=== PATIENT | female | born 1945 | race Caucasian/White ===

== ENCOUNTER 2019-08-06 15:35 | Outpatient (CLI) | payer MEDICARE, MEDICAID, SELFPAY ==
--- NOTE | 2019-08-06 15:52 | XR_ITS ---
WS: [id number] PROCEDURE: XR chest 2V* [id number] CLINICAL INFORMATION: CHRONIC OBSTRUCTIVE PULMONARY DISEASE COMPARISON: FINDINGS: Heart: Normal cardiac silhouette. Lungs: Chronic emphysematous changes. No acute pulmonary infiltrates. Slight bibasilar atelectasis. T ortuous thoracic aorta. Bones: Moderate thoracic kyphosis. XR/XR chest 2V* [id number] IMPRESSION: 1. Hyperinflation with chronic emphysematous changes. Slight bibasilar atelect asis. 2. No acute pulmonary infiltrates. 3. Moderate thoracic kyphosis.
== END 2019-08-06 15:36 | disposition home or self-care (01) ==
PROVIDERS: PCP Nurse Practitioner Family; Visit Provider Nurse Practitioner Family
DX: J44.9 Chronic obstructive pulmonary disease, unspecified (principal); M40.294 Other kyphosis, thoracic region; J98.11 Atelectasis
CPT/HCPCS: 71046

== ENCOUNTER 2019-08-27 13:27 | Outpatient (CLI) | payer MEDICARE, MEDICAID, SELFPAY ==
--- NOTE | 2019-08-27 13:42 | MM_ITS ---
WS: [id number] BILATERAL SCREENING DIGITAL MAMMOGRAM WITH CAD HISTORY: SCREENING COMPARISON: 05/30/2018 and 03/08/2017 Bilateral CC and MLO views submitted. Computer aided detection analyzed. Breast composition: There are scattered areas of fibroglandular density. No suspicious masses, microc alcifications or architectural distortion. Scattered benign calcifications. MM/[place] [id number] IMPRESSION: BI-RADS: 2-Benign FOLLOW UP: 1 Year Follow-up
== END 2019-08-27 13:28 | disposition home or self-care (01) ==
LOC: RADSHAW 13:31
PROVIDERS: PCP Nurse Practitioner Family; Visit Provider Nurse Practitioner Family
DX: Z12.31 Encounter for screening mammogram for malignant neoplasm of breast (principal)
CPT/HCPCS: 77067

== ENCOUNTER 2019-12-18 12:52 | Outpatient (CLI) | payer MEDICARE, MEDICAID, SELFPAY ==
--- NOTE | 2019-12-18 13:04 | CT_ITS ---
WS: [id number] CT LUNG CANCER SCREENING DLP: 54.27 mGy.cm DIvol: 1.52 mGy CLINICAL INFORMATION SCREENING VISIT: Baseline COMPARISON: 07/23/2018 FINDINGS Diagnostic quality: Satisfactory Comments: None. Lung Nodules: None. Lungs: Hyperinflated lungs with emphysema. No pneumonia. No endobronchial lesions. Heart: Size heart. Heavy calcification along the coronary arteries. Other findings: Atherosclerosis of the aorta, mild. Pulmonary artery size is normal. Small hiatal her emelia. Superficial cyst LEFT lobe of the liver measures 14 mm. No adrenal mass. Increase in thoracic kyphosis with moderate to severe spondylosis in the thoracic spine. CT/CT lung screening [id number] IMPRESSION: LUNG-RADS: 1S-Negative with Significant Findings FOLLOW UP: 12 Month: Continue annual screening with LDCT 1. Moderate coronary artery atherosclerosis.
[2019-12-18 13:53] VITALS: O2SAT 93
--- NOTE | 2019-12-18 15:08 | PFTS_ITS ---
Date of Study:12/18/19 Date of Dictation: MECHANICS: Forced vital capacity (FVC) is normal. Forced expiratory volume in one second (FEV1) is reduced. FEV1/FVC is reduced. FLOW VOLUME LOOP: Reduced flow at all lung volumes with significant scooping. LUNG VOLUMES: Total lung capacity (TLC) is elevated. Residual volume (RV) is elevated. DIFFUSING CAPACITY FOR CARBON MONOXIDE: Moderately reduced. INTERPRETATION: The pulmonary function tests are consistent with severe obstruction. There is significant postbronchodilator response. Lung volumes are consistent with hyperinflation and air trapping. Gas exchange (DLCO) is moderately reduced. MTDD
== END 2019-12-18 12:53 | disposition home or self-care (01) ==
PROVIDERS: PCP Nurse Practitioner Family; Visit Provider Internal Medicine Critical Care Medicine
DX: J44.9 Chronic obstructive pulmonary disease, unspecified (principal); Z12.2 Encounter for screening for malignant neoplasm of respiratory organs; F17.210 Nicotine dependence, cigarettes, uncomplicated; I25.10 Atherosclerotic heart disease of native coronary artery without angina pectoris
CPT/HCPCS: 94060; 94726; 94729; G0297; J7611

== ENCOUNTER 2020-10-12 14:52 | Outpatient (CLI) | payer MEDICARE, MEDICAID, SELFPAY ==
--- NOTE | 2020-10-12 15:08 | XR_ITS ---
WS: [id number] DEXA (DUAL ENERGY X-RAY ABSORPTIOMETRY) Bone mineral density was performed using a [employer] machine. HISTORY: AGE RELATED OSTEOPOROSIS WITHOUT CURRENT PATHOLOGICAL FRACTURE COMPARISON: 05/30/2018 Lumbar spine BMD (L1-L4): 0.929 g/cm2 T score: -2.1 Z score: -0.4 Total hip BMD: Left: 0.709 g/cm2. T score: -2.4 Z score: -0.8 Right: 0.704 g/cm2. T score: -2.4 Z score: -0.8 10 year probability of a major osteoporotic fracture is 47%. Compared to the prior study from 05/30/2018. Lumbar spine bone mineral density has increased by 4.4%. Bilateral hips bone mineral density has decreased by 0.6%. XR/XR DEXA axial skeleton* [id number] IMPRESSION: OSTEOPENIA based upon the WHO classification for females. Since the prior study there has been a significant increase in bone mineral density within the lumba r spine.
== END 2020-10-12 14:53 | disposition home or self-care (01) ==
LOC: RADWPI 15:00
PROVIDERS: PCP Nurse Practitioner Family; Visit Provider Nurse Practitioner Family
DX: M81.0 Age-related osteoporosis without current pathological fracture (principal); M85.89 Other specified disorders of bone density and structure, multiple sites
CPT/HCPCS: 77080

== ENCOUNTER → 2020-10-16 16:27 | Outpatient (BNVA) | payer MEDICARE, MEDICAID, SELFPAY | PROVIDERS: PCP Nurse Practitioner Family; Visit Provider Surgery | DX: Z20.828 Contact with and (suspected) exposure to other viral communicable diseases (principal) | CPT/HCPCS: 87635 ==

== ENCOUNTER 2020-10-20 08:35 | Day surgery (SDC) | payer MEDICARE, MEDICAID, SELFPAY ==
[2020-10-16 14:18] VITALS: BMI 25.4
--- NOTE | 2020-10-20 09:12 | P.ANESASSM_ITS ---
Pre-Anesthetic Assessment Pre-Anesthetic Assessment: Height/Weight: Height 1.6 m Weight 65.317 kg Proposed Procedure: Operation Date: 10/20/20 10:00 Proposed Procedures p EGD/colon 65482 02214 R13.10 Z12.11(Not Applicable) - Aniket Brody MD s Colonoscopy(Not Applicable) - Aniket Brody MD Was Beta Luis taken within 24 hours: N/A Was Clonidine taken within 24 hours: N/A Social: Social History: Tobacco and No alcohol Exam: Pre-Anes Outpt Exam: alert, oriented x 3, clear to auscultation bilaterally and regular rate & rhythm Airway: Submandibular: WNL Cervical ROM: WNL MP: 2 Dentition: Chipped and Loose Pulmonary: Pulmonary: COPD CV/HEM: CV/HEM: None reported : : None reported Hepatic: Hepatic: None reported GI: GI: GERD Metabolic: Metabolic: Hyperlipidemia and Thyroid Musc/skel: Musc/skel: OA/DJD Neuropsych: Neuropsych: None reported Anesthetic Plan: ASA status: 3 Anesthesia: MAC PFSH Anesthesia PFSH: Medical History (Updated 10/02/20 @ 14:30 by Aniket Brody MD) ADD (attention deficit disorder) Anxiety COPD (chronic obstructive pulmonary disease) Depression GERD (gastroesophageal reflux disease) Hepatitis C Hypertension Hypothyroidism Osteoporosis Vitamin D deficiency Surgical History History of colonoscopy (2009) History of esophagogastroduodenoscopy (EGD) (~01/23/18) History of hysterectomy History of tubal ligation Family History Father Alcoholism Mother Cancer, Onset Age: 63 Lung Grandfather Congestive heart failure Paternal Grandmother Alcoholism Maternal Myocardial infarction Maternal Family/Other Parkinson disease Aunt Family/Other Hepatitis C Maternal Aunt Sister Drug abuse Brother Drug abuse Social History Smoking and tobacco status: current every day smoker cigarettes Packs smoked per day: 0.5 Years cigarettes smoked: 40 Quit status (tobacco): has tried quititng Second hand smoke exposure: No Smoking risk assessment/counseling performed?: Yes Alcohol intake: never Desire information about substance/drug rehabilitation?: No Adopted: No Lives independently: Yes Household members: family Housing: House Marital status: Highest education level completed: High School Graduate service: No Current occupational status: retired Pets and animals: No History of recent travel: No Sexually active: No Current gender identity: Female Summer/Yazidi: Protestant Special summer needs: No Agree to transfusion: No Financial difficulty paying for basics: Decline to Answer Data Anesthesia Cardiac Studies: No Data to Display
[2020-10-20 10:03] VITALS: BP 164/85; PULSE 72; RESP 16; TEMP 37; O2SAT 92
[2020-10-20] MEDS: sodium chloride 0.9% 1,000 ML 30 ML IV (10:05)
--- NOTE | 2020-10-20 10:26 | W.PM.OPSUD ---
Surgery/Procedure H&P Update DATE OF PROCEDURE: October 20, 2020 DATE H&P PERFORMED: 10/02/20 H&P UPDATE INFORMATION: I have reviewed H&P completed within last 30 days, I have examined patient prior to procedure and No changes to prior documentation PREOP DIAGNOSIS: panendoscopy PLANNED PROCEDURE: Operation Date: 10/20/20 10:00 Proposed Procedures p EGD/colon 10828 39797 R13.10 Z12.11(Not Applicable) - Aniket Brody MD s Colonoscopy(Not Applicable) - Aniket Brody MD
[2020-10-20 11:08] VITALS: BP 200/135; PULSE 92; RESP 18; TEMP 36.6; O2SAT 92
[2020-10-20 11:15] VITALS: PULSE 86; RESP 18; O2SAT 96
[2020-10-20 11:21] VITALS: PULSE 88
[2020-10-20 11:39] VITALS: BP 175/97; PULSE 72; RESP 20; TEMP 36.6; O2SAT 92
[2020-10-20 12:37] VITALS: BP 144/75; PULSE 64; RESP 18; TEMP 36.6; O2SAT 93
--- NOTE | 2020-10-20 13:51 | ANE.PACU2 ---
Inpatient post-anesthesia follow up: Airway intact: Yes Vital signs: Temperature 97.9 F Pulse Rate 64 Respiratory Rate 18 Blood Pressure 144/75 Pulse Oximetry 93 Oxygen Delivery Me thod Room Air Oxygen Flow Rate 2 Fraction of Inspir ed Oxygen Hydration adequate: Yes Nausea and vomiting: No Pain level: 2 Mental status: Baseline
== END 2020-10-20 13:00 | disposition home or self-care (01) ==
PROVIDERS: PCP Nurse Practitioner Family; Visit Provider Surgery
PROC: 0DJD8ZZ Inspection of Lower Intestinal Tract, Via Natural or Artificial Opening Endoscopic (ICD-10-PCS; CPT 45378; 2020-10-20 10:00)
PROC: 0DJ08ZZ Inspection of Upper Intestinal Tract, Via Natural or Artificial Opening Endoscopic (ICD-10-PCS; CPT 43235; 2020-10-20 10:00)
DX: Z12.11 Encounter for screening for malignant neoplasm of colon (principal); R13.10 Dysphagia, unspecified; Z79.82 Long term (current) use of aspirin; J44.9 Chronic obstructive pulmonary disease, unspecified; B19.20 Unspecified viral hepatitis C without hepatic coma; I10 Essential (primary) hypertension; E03.9 Hypothyroidism, unspecified; M81.0 Age-related osteoporosis without current pathological fracture; F17.210 Nicotine dependence, cigarettes, uncomplicated; K29.70 Gastritis, unspecified, without bleeding; K57.30 Diverticulosis of large intestine without perforation or abscess without bleeding; K64.8 Other hemorrhoids; K21.9 Gastro-esophageal reflux disease without esophagitis; E78.5 Hyperlipidemia, unspecified; M19.90 Unspecified osteoarthritis, unspecified site
CPT/HCPCS: 43235; 45378; 94640; 96360; 96361; J2704; J3490; J7030; J7611

== ENCOUNTER 2021-01-21 14:55 | Outpatient (CLI) | payer MEDICARE, MEDICAID, SELFPAY ==
--- NOTE | 2021-01-21 15:13 | MM_ITS ---
WS: [id number] BILATERAL DIGITAL SCREENING MAMMOGRAPHY WITH CAD CLINICAL INFORMATION: SCREENING HISTORY: Screening mammogram. No current complaints. COMPARISON: August 27, 2019 TECHNIQUE: Bilateral CC and MLO views. FINDINGS: Scattered fibroglandular densities bilaterally. No suspicious focal mass, asymmetry, calcifications, or architectural distortion. No evidence of malignancy. A few tiny punctate calcifications. MM/[place] [id number] IMPRESSION: BI-RADS: 2-Benign FOLLOW UP: 1 Year Follow-up Recommend return to annual screening mammography.
== END 2021-01-21 14:56 | disposition home or self-care (01) ==
LOC: RADSHAW 15:00
PROVIDERS: PCP Nurse Practitioner Family; Visit Provider Nurse Practitioner Family
DX: Z12.31 Encounter for screening mammogram for malignant neoplasm of breast (principal)
CPT/HCPCS: 77067

== ENCOUNTER 2021-02-01 14:04 | Outpatient (CLI) | payer MEDICARE, MEDICAID, SELFPAY ==
--- NOTE | 2021-02-01 14:12 | CT_ITS ---
WS: [id number] LDCT LUNG CANCER SCREENING TECHNIQUE: Noncontrast CT of the chest with coronal and sagittal reformatted images. CLINICAL INFORMATION: HX OF TOBACCO USE COMPARISON: CT lung screen December 18, 2019 DLP: 51.42 mGy.cm DIvol: 1.[address] scans at [facility] use at least one of these dose optimization techniques: automat ed exposure control; mA and/or kV adjustment per patient size (includes targeted exams where dose is matched to clinical indication); or iterative reconstruction. FINDINGS: Moderate chronic emphysematous changes. No suspicious pulmonary parenchymal opacities. No focal pneum onia or pleural fluid. Aortic calcification. No mediastinal or hilar lymphadenopathy. Dense coronary calcification. Small es ophageal hiatal hernia. 14 mm left hepatic cyst is stable. Moderate thoracic kyphosis with degenerati ve disc disease in the mid and lower thoracic spine with endplate degenerative changes and sclerosis. This is similar to the prior examination. CT/CT lung screening [id number] IMPRESSION: Dense coronary calcification LUNG-RADS: 1S-Negative with Significant Findings FOLLOW UP: 12 Month: Continue annual screening with LDCT
== END 2021-02-01 14:05 | disposition home or self-care (01) ==
PROVIDERS: PCP Nurse Practitioner Family; Visit Provider Nurse Practitioner Family
DX: Z12.2 Encounter for screening for malignant neoplasm of respiratory organs (principal); F17.210 Nicotine dependence, cigarettes, uncomplicated; I70.0 Atherosclerosis of aorta
CPT/HCPCS: 71271

== ENCOUNTER → 2021-02-17 15:04 | Outpatient (BNVA) | payer MEDICARE, MEDICAID, SELFPAY | PROVIDERS: PCP Nurse Practitioner Family; Visit Provider Registered Nurse Neonatal Intensive Care | DX: S69.91XA Unspecified injury of right wrist, hand and finger(s), initial encounter (principal); X58.XXXA Exposure to other specified factors, initial encounter; M19.041 Primary osteoarthritis, right hand | CPT/HCPCS: 73130 ==

== ENCOUNTER → 2021-03-01 15:20 | Outpatient (BNVA) | payer MEDICARE, MEDICAID, SELFPAY | PROVIDERS: PCP Nurse Practitioner Family; Visit Provider Nurse Practitioner Family | DX: Z20.822 Contact with and (suspected) exposure to COVID-19 (principal); J06.9 Acute upper respiratory infection, unspecified | CPT/HCPCS: 87635 ==

== ENCOUNTER → 2021-03-24 11:12 | Outpatient (BNVA) | payer MEDICARE, MEDICAID, SELFPAY | PROVIDERS: PCP Nurse Practitioner Family; Referring Provider Nurse Practitioner Family; Visit Provider Specialist | DX: M19.041 Primary osteoarthritis, right hand (principal); M79.641 Pain in right hand | CPT/HCPCS: 73130 ==

== ENCOUNTER → 2021-12-08 13:51 | Outpatient (BNVA) | payer MEDICARE, MEDICAID, SELFPAY | PROVIDERS: PCP Nurse Practitioner Family; Visit Provider Internal Medicine Critical Care Medicine | DX: J44.9 Chronic obstructive pulmonary disease, unspecified (principal); F17.210 Nicotine dependence, cigarettes, uncomplicated; G47.33 Obstructive sleep apnea (adult) (pediatric); K21.9 Gastro-esophageal reflux disease without esophagitis; I10 Essential (primary) hypertension | CPT/HCPCS: 71046; 99214 ==

== ENCOUNTER → 2021-12-23 10:46 | Outpatient (BNVA) | payer MEDICARE, MEDICAID, SELFPAY | PROVIDERS: PCP Nurse Practitioner Family; Visit Provider Anesthesiology Pain Medicine | DX: M43.16 Spondylolisthesis, lumbar region (principal); M79.604 Pain in right leg; M79.605 Pain in left leg; F17.210 Nicotine dependence, cigarettes, uncomplicated | CPT/HCPCS: 99204 ==

== ENCOUNTER → 2022-01-05 13:27 | Outpatient (BNVA) | payer MEDICARE, MEDICAID, SELFPAY | PROVIDERS: PCP Nurse Practitioner Family; Visit Provider Internal Medicine Critical Care Medicine | DX: J44.9 Chronic obstructive pulmonary disease, unspecified (principal); F17.210 Nicotine dependence, cigarettes, uncomplicated; G47.33 Obstructive sleep apnea (adult) (pediatric); K21.9 Gastro-esophageal reflux disease without esophagitis; I10 Essential (primary) hypertension; E03.9 Hypothyroidism, unspecified | CPT/HCPCS: 99214 ==

== ENCOUNTER 2022-02-07 13:19 | Outpatient (CLI) | payer MEDICARE, MEDICAID, SELFPAY ==
--- NOTE | 2022-02-07 13:00 | MR_ITS ---
WS: [id number] MRI LUMBAR SPINE NONCONTRAST HISTORY: M48.062 - Spinal stenosis, lumbar region with neurogenic claudication. COMPARISON: None available. TECHNIQUE: Sagittal and axial multisequence imaging is submitted. Thoracolumbar scoliosis. Increase in thoracic kyphosis. Disc space narrowing and disc bulging at T10- 11 and T11-12. Bilateral foraminal stenosis at T10-11 and T11-12, greatest on the RIGHT is at least m oderate. Mild increase in lumbar lordosis. L5 anterolisthesis by 5 mm. Disc spaces are mildly desiccated throughout the lumbar spine. No fracture or marrow edema. Conus terminates normally at L1-2 disc level. L1-L2: Diffuse moderate disc bulging and facet arthritis. No stenosis. L2-L3: Mild disc bulging and facet arthritis. No stenosis. L3-L4: Diffuse annular disc bulging. Mild ligamentum flavum and facet arthritis. There is very mild e ncroachment into the subarticular recesses. Mild central and bilateral subarticular recess stenosis. L4-L5: Mild diffuse annular disc bulging with moderate ligamentum flavum hypertrophy and facet arthri tis. Mild central and bilateral subarticular recess stenosis. Asymmetric disc bulging contacts the tr aversing RIGHT L5 nerve root. L5-S1: Anterolisthesis of L5 with mild unroofing of the disc. Mild encroachment but no displacement o f the S1 nerve roots. Facet and ligamentum flavum hypertrophy. Mild foraminal stenosis. MR/MR lumbar spine wo con* [id number] IMPRESSION: 1. Grade 1 anterolisthesis of L5. 2. Mild central stenosis at L5-S1 with disc contacting but not displacing the S1 nerve roots. 3. Mild central and bilateral subarticular recess stenosis at L3-4. 4. Mild central and bilateral subarticular recess stenosis L4-5 with slightly greater asymmetric disc contact on the RIGHT L5 nerve root. 5. Seen on the survey image is bilateral foraminal stenosis at T10-11 and T11- 12, greatest on the RIGHT with disc and osteophyte disease.
== END 2022-02-07 13:20 | disposition home or self-care (01) ==
LOC: RAD 13:22
PROVIDERS: PCP Nurse Practitioner Family; Visit Provider Anesthesiology Pain Medicine
DX: M48.062 Spinal stenosis, lumbar region with neurogenic claudication (principal); M48.07 Spinal stenosis, lumbosacral region; M48.04 Spinal stenosis, thoracic region; M48.061 Spinal stenosis, lumbar region without neurogenic claudication
CPT/HCPCS: 72148

== ENCOUNTER 2022-02-17 10:02 | Outpatient (CLI) | payer MEDICARE, MEDICAID, SELFPAY ==
--- NOTE | 2022-02-17 10:16 | MM_ITS ---
WS: [id number] BILATERAL SCREENING DIGITAL TOMOSYNTHESIS MAMMOGRAM WITH CAD HISTORY: SCREENING COMPARISON: 01/21/2021 and 08/27/2019 Bilateral CC and MLO views with tomosynthesis and synthetic mammography submitted. Computer aided det ection analyzed. Breast composition: There are scattered areas of fibroglandular density. No suspicious masses, microc alcifications or architectural distortion. There are a few scattered benign calcifications within eac h breast. MM/[place] [id number] IMPRESSION: BI-RADS: 2-Benign FOLLOW UP: 1 Year Follow-up
== END 2022-02-17 10:03 | disposition home or self-care (01) ==
LOC: RAD 10:03
PROVIDERS: PCP Nurse Practitioner Family; Visit Provider Family Medicine Adult Medicine
DX: Z12.31 Encounter for screening mammogram for malignant neoplasm of breast (principal)
CPT/HCPCS: 77063; 77067

== ENCOUNTER → 2022-02-21 10:44 | Outpatient (BNVA) | payer MEDICARE, MEDICAID, SELFPAY | PROVIDERS: PCP Nurse Practitioner Family; Visit Provider Anesthesiology Pain Medicine | DX: M47.816 Spondylosis without myelopathy or radiculopathy, lumbar region (principal); M43.16 Spondylolisthesis, lumbar region; M51.16 Intervertebral disc disorders with radiculopathy, lumbar region; M51.9 Unspecified thoracic, thoracolumbar and lumbosacral intervertebral disc disorder; M79.604 Pain in right leg; M79.605 Pain in left leg; F17.210 Nicotine dependence, cigarettes, uncomplicated | CPT/HCPCS: 99214 ==

== ENCOUNTER → 2022-03-07 08:43 | Outpatient (BNVA) | payer MEDICARE, MEDICAID, SELFPAY | PROVIDERS: PCP Nurse Practitioner Family; Visit Provider Anesthesiology Pain Medicine | DX: M47.816 Spondylosis without myelopathy or radiculopathy, lumbar region (principal); M43.16 Spondylolisthesis, lumbar region; M51.16 Intervertebral disc disorders with radiculopathy, lumbar region; M51.9 Unspecified thoracic, thoracolumbar and lumbosacral intervertebral disc disorder; M79.604 Pain in right leg; M79.605 Pain in left leg; F17.210 Nicotine dependence, cigarettes, uncomplicated | CPT/HCPCS: 72110; 99214 ==

== ENCOUNTER 2022-03-15 11:59 | Outpatient (CLI) | payer MEDICARE, MEDICAID, SELFPAY ==
--- NOTE | 2022-03-15 12:03 | CT_ITS ---
WS: [id number] LDCT LUNG CANCER SCREENING TECHNIQUE: Noncontrast CT of the chest with coronal and sagittal reformatted images. CLINICAL INFORMATION: Lung cancer screening COMPARISON: February 01, 2021 DLP: 78.09 mGy.cm DIvol: Mean CTDIvol: 1.60 (mGy) All CT scans at [facility] use at least one of these dose optimization techniques: automat ed exposure control; mA and/or kV adjustment per patient size (includes targeted exams where dose is matched to clinical indication); or iterative reconstruction. FINDINGS: Moderate chronic emphysematous changes. No suspicious pulmonary parenchymal opacities. No focal pneum onia or pleural fluid. Aortic calcification. No mediastinal or hilar lymphadenopathy. Dense coronary calcification. Small esophageal hiatal hernia. 17 mm left hepatic cyst is stable. Moderate thoracic kyphosis with de generative disc disease in the mid and lower thoracic spine with endplate degenerative changes and sc lerosis unchanged compared to previous. LEFT thyroid nodule measuring 18 mm. This can be further eval uated with ultrasound. This appears progressed since the [address] where nodule measured approxim ately [address]/CT lung screening [id number] IMPRESSION: 1. Dense coronary calcification. 2. LEFT thyroid nodule measuring 18 mm. This can be further evaluated with ult rasound. LUNG-RADS: 1S-Negative with Significant Findings FOLLOW UP: 12 Month: Continue annual screening with LDCT
== END 2022-03-15 12:00 | disposition home or self-care (01) ==
LOC: RAD 11:59
PROVIDERS: PCP Nurse Practitioner Family; Visit Provider Internal Medicine Critical Care Medicine
DX: Z12.2 Encounter for screening for malignant neoplasm of respiratory organs (principal); F17.200 Nicotine dependence, unspecified, uncomplicated
CPT/HCPCS: 71271

== ENCOUNTER → 2022-03-16 13:24 | Outpatient (BNVA) | payer MEDICARE, MEDICAID, SELFPAY | PROVIDERS: PCP Nurse Practitioner Family; Visit Provider Anesthesiology Pain Medicine | DX: F17.210 Nicotine dependence, cigarettes, uncomplicated (principal); M54.16 Radiculopathy, lumbar region | CPT/HCPCS: 62323; J1040; J3490 ==

== ENCOUNTER → 2022-03-24 10:51 | Outpatient (BNVA) | payer MEDICARE, MEDICAID, SELFPAY | PROVIDERS: Referring Provider Anesthesiology Pain Medicine; Visit Provider Orthopaedic Surgery | DX: M43.17 Spondylolisthesis, lumbosacral region (principal) | CPT/HCPCS: 99204 ==

== ENCOUNTER → 2022-03-25 13:30 | Outpatient (BNVA) | payer MEDICARE, MEDICAID, SELFPAY | PROVIDERS: Visit Provider Family Medicine Adult Medicine | DX: I10 Essential (primary) hypertension (principal); G47.33 Obstructive sleep apnea (adult) (pediatric); E03.9 Hypothyroidism, unspecified; E04.1 Nontoxic single thyroid nodule; J44.9 Chronic obstructive pulmonary disease, unspecified; M51.16 Intervertebral disc disorders with radiculopathy, lumbar region; K21.9 Gastro-esophageal reflux disease without esophagitis | CPT/HCPCS: 80053; 83036; 84443; 85025 ==

== ENCOUNTER → 2022-03-31 10:37 | Outpatient (BNVA) | payer MEDICARE, MEDICAID, SELFPAY | PROVIDERS: Visit Provider Anesthesiology Pain Medicine | DX: M47.816 Spondylosis without myelopathy or radiculopathy, lumbar region (principal); M43.10 Spondylolisthesis, site unspecified; M51.16 Intervertebral disc disorders with radiculopathy, lumbar region; M51.9 Unspecified thoracic, thoracolumbar and lumbosacral intervertebral disc disorder; M79.604 Pain in right leg; M79.605 Pain in left leg; F17.210 Nicotine dependence, cigarettes, uncomplicated | CPT/HCPCS: 99214 ==

== ENCOUNTER → 2022-04-06 10:52 | Outpatient (BNVA) | payer MEDICARE, MEDICAID, SELFPAY | PROVIDERS: PCP Family Medicine Adult Medicine; Visit Provider Internal Medicine Critical Care Medicine | DX: J44.1 Chronic obstructive pulmonary disease with (acute) exacerbation (principal); G47.33 Obstructive sleep apnea (adult) (pediatric); E04.1 Nontoxic single thyroid nodule; F17.210 Nicotine dependence, cigarettes, uncomplicated | CPT/HCPCS: 99214 ==

== ENCOUNTER → 2022-04-25 12:50 | Outpatient (BNVA) | payer MEDICARE, MEDICAID, SELFPAY | PROVIDERS: PCP Family Medicine Adult Medicine; Visit Provider Anesthesiology Pain Medicine | DX: M47.816 Spondylosis without myelopathy or radiculopathy, lumbar region (principal); F17.210 Nicotine dependence, cigarettes, uncomplicated | CPT/HCPCS: 64493; 64494; 64495; J3490 ==

== ENCOUNTER 2022-05-03 08:05 | Outpatient (CLI) | payer MEDICARE, MEDICAID, SELFPAY ==
--- NOTE | 2022-05-03 08:00 | US_ITS ---
WS: [id number] THYROID ULTRASOUND HISTORY: 18 mm nodule COMPARISON: CT head 03/15/2022 Right lobe: 1.1 cm x 1.3 cm x 2.9 cm (w x ap x l). Volume: 2.0 cm3. Normal size and echotexture. No significant are dominant nodules are present. Left lobe: 1.8 cm x 1.4 cm x 3.3 cm (w x ap x l). Volume: 4.3 cm3. Normal size gland. Solid nodule nearly isoechoic to the adjacent thyroid gland. There are a few small cystic areas within this predominantly solid nodule. Nodule in the mid gland measures 1.8 x 1.5 x 1. 8 cm. There is mild peripheral increased vascularity. No echogenic foci. Isthmus: 0.4 cm. US/US thyroid [id number] IMPRESSION: 1. TI-RADS 3: LEFT thyroid nodule recommend follow-up ultrasound in one, 3 an d 5 years. 2. Negative RIGHT thyroid.
== END 2022-05-03 08:06 | disposition home or self-care (01) ==
PROVIDERS: PCP Family Medicine Adult Medicine; Visit Provider Family Medicine Adult Medicine
DX: E04.1 Nontoxic single thyroid nodule (principal); E03.9 Hypothyroidism, unspecified
CPT/HCPCS: 76536

== ENCOUNTER → 2022-05-06 16:45 | Outpatient (BNVA) | payer MEDICARE, MEDICAID, SELFPAY | PROVIDERS: PCP Family Medicine Adult Medicine; Visit Provider Registered Nurse Neonatal Intensive Care | DX: N39.0 Urinary tract infection, site not specified (principal) | CPT/HCPCS: 81000 ==

== ENCOUNTER → 2022-08-26 10:27 | Outpatient (BNVA) | payer MEDICARE, MEDICAID, SELFPAY | PROVIDERS: PCP Family Medicine Adult Medicine; Visit Provider Internal Medicine Pulmonary Disease | DX: J44.9 Chronic obstructive pulmonary disease, unspecified (principal); R06.02 Shortness of breath; G47.33 Obstructive sleep apnea (adult) (pediatric); F17.210 Nicotine dependence, cigarettes, uncomplicated; I10 Essential (primary) hypertension; E11.9 Type 2 diabetes mellitus without complications; E03.9 Hypothyroidism, unspecified | CPT/HCPCS: 99214 ==

== ENCOUNTER → 2022-09-06 13:34 | Outpatient (BNVA) | payer MEDICARE, MEDICAID, SELFPAY | PROVIDERS: PCP Family Medicine Adult Medicine; Visit Provider Family Medicine Adult Medicine | DX: E11.9 Type 2 diabetes mellitus without complications (principal); J44.9 Chronic obstructive pulmonary disease, unspecified | CPT/HCPCS: 83036 ==

== ENCOUNTER 2022-10-17 08:46 | Outpatient (CLI) | payer MEDICARE, MEDICAID, SELFPAY ==
[2022-10-17 08:53] VITALS: BMI 25.4
--- NOTE | 2022-10-17 08:56 | ECG_ITS ---
[facility] Test Date: 2022-10-17 Pat Name: Latonya Cano Department: Room: Gender: Female Hall Porter: Armida Carrington : 1945 Requested By: Nestor Ching Order Number: [id number] Tameka MD: Janell Fraire M.D. Interpretive Statements NAME OF STUDY: LEXISCAN SESTAMIBI STRESS TEST INDICATION: Shortness of Breath, PROCEDURE: At the baseline, the EKG revealed normal sinus rhythm with a normal ST Ts. The baseline heart was 75 bpm with a blood pressue of 122/82 mm of Hg Lexiscan was infused over a period of 20 seconds. A total of 0.4 milligrams of Lexiscan was infused. The stress phase was continued for a total of 5 minutes. Heart rate at the end of the stress phase was 104 bpm with a blood pressure 147/89 mm of Hg. The EKG at the peak infusion revealed no significant changes. Sestamibi was injected 20 seconds after the Lexiscan infusion. Heart rate at the end of the recovery phase was 103 bpm with a blood pressure of 128/90 mm of Hg. CONCLUSION: 1. No significant EKG changes with the LexiScan infusion 2. No LexiScan induced chest pain or cardiac arrhythmia 3. Normal blood pressure and heart rate response 4. Sestamibi/sestamibi perfusion scan pending; see separate report. Electronically Signed On 10-23-2022 16:42:39 CDT by Janell Fraire M.D. [email or web address]
--- NOTE | 2022-10-17 08:56 | NMCV_ITS ---
NM anita perf SPECT r/s* [id number] Latonya Cano Age: 76 Gender: F : 1945 Exam Date: 10/17/2022 10:35 Ordering Phys: Nestor Hernandez MD Technologist: DOM Goldstein Exam Location: [facility] Indications: SHORTNESS OF BREATH STRESS TEST Please see separate stress test report in [facility] for full findings IMAGE PROTOCOL Rest/Stress 1 Lexiscan Day Radiopharmaceutical Dose (mCi) Administration Site Administered by Rest: Tc-99m 10.8 IV DOM Cleaning Sestamibi Stress:Tc-99m 32.6 IV DOM Cleaning Sestamibi Rest: 17-Oct-2022 60 Discovery 630 Stress: 17-Oct-2022 30 Discovery 630 0.4mg Lexiscan. Images obtained in supine and prone position. SPECT RESULTS Technical Quality: Excellent Raw Data Analysis: Breast attenuation Image Corrections: No attenuation or motion correction applied Summed Stress Score: 0 Summed Rest Score: 0 Summed Difference Score: 0 PERFUSION FINDINGS Uniform myocardial tracer uptake with no significant perfusion abnormalities FUNCTIONAL RESULTS (calculated via Gated SPECT) Stress Image LV EF (%): 79 Stress EDV (mL):56 TID: 0.79 Stress ESV (mL):12 FUNCTIONAL FINDINGS: Segmental wall motion analysis revealing no gross wall motion abnormalities IMPRESSIONS 1. Uniform myocardial tracer uptake with no significant perfusion abnormalities 2. Normal LV ejection fraction of 79%. 3. LV wall motion analysis revealing no gross wall motion abnormalities. 4. Normal LV volume Low probability for coronary ischemia, based on the above findings Dr Janell Fraire MD [facility] (Electronically Signed) Final Date: 17 October 2022 17:54 S
[2022-10-17] MEDS: regadenoson 0.4 Mg/5 ml Syringe IVP (11:00)
[2022-10-17 11:30] VITALS: BP 128/90; PULSE 105
== END 2022-10-17 08:47 | disposition home or self-care (01) ==
LOC: CDL 08:48
PROVIDERS: PCP Family Medicine Adult Medicine; Visit Provider Internal Medicine Pulmonary Disease
DX: R06.02 Shortness of breath (principal)
CPT/HCPCS: 78452; 86787; 93017; 96374; A9500; J2785

== ENCOUNTER 2022-11-11 13:56 | Outpatient (CLI) | payer MEDICARE, MEDICAID, SELFPAY ==
--- NOTE | 2022-11-11 14:18 | XR_ITS ---
WS: [id number] Chest with right rib detail, 4 views, 11/11/2022 Clinical Data: rib chest pain Comparison: Two-view chest, 12/08/2021 Findings: The lungs show no nodules, masses, or effusions. The heart is normal. No pneumonia or pneumothorax is seen. The aortic arch and descending thoracic aorta show tortuosity. The diaphragms are flattened. The ribs are intact. No rib fractures seen. No subcutaneous emphysema is present. XR/XR ribs RT mn 3V w CXR1V [id number] Impression: 1. Hyperinflation and atherosclerosis. 2. Negative right rib detail.
[2022-11-11 14:33] LABS: Basophils # 0.1 10^3/uL (0.0-0.1); Basophils % 0.8 %; Eosinophils # 0.4 10^3/uL (0.0-0.8); Eosinophils % 3.3 %; Hematocrit 45.6 % (37.0-47.0); Hemoglobin 15.2 g/dL (11.5-15.3); Lymphocytes # 3.4 10^3/uL (0.8-4.8); Lymphocytes % 26.4 %; Mean Corpuscular HGB Conc 33.3 g/dL (30.0-36.0); Mean Corpuscular Hemoglobin 31.3 pg (28.0-34.0); Mean Corpuscular Volume 93.8 fl (81-99); Mean Platelet Volume 10.2 fL (7.4-10.4); Monocytes # 1.3 10^3/uL (0.2-0.9); Monocytes % 10.1 %; Neutrophils # 7.56 10^3/uL (1.8-7.7); Neutrophils % 58.4 %; Nucleated Red Blood Cells % 0 %; Platelet Count 250 10^3/cmm (130-400); Red Blood Count 4.86 10^6/uL (4.1-5.3); Red Cell Distribution Width 13.2 % (12.1-15.1)
[2022-11-11 15:07] LABS: Estmated Average Glucose 111; Hemoglobin A1C 5.5 % (4.0-6.0)
[2022-11-11 15:12] LABS: Alanine Aminotransferase 12 U/L (0-33); Albumin Level 4.1 g/dL (3.5-5.2); Alkaline Phosphatase 32 U/L (35-105); Anion Gap 13.1 (5-19); Aspartate Amino Transferase 18 U/L (0-32); Blood Urea Nitrogen 13 mg/dL (8-23); Carbon Dioxide 24 mmol/L (22-29); Chloride 106 mmol/L (98-107); Globulin 2.7 g/dL (1.3-4.6); Glucose 84 mg/dL (65-115); Osmolality Calculated 287 mOsm/kg (285-295); Potassium 4.1 mmol/L (3.5-5.1); Sodium 139 mmol/L (136-145); Thyroid Stimulating Hormone 0.03 uIU/mL (0.27-4.20); Total Bilirubin 0.4 mg/dL (0.15-1.2); Total Protein 6.8 g/dL (6.6-8.7)
== END 2022-11-11 13:57 | disposition home or self-care (01) ==
PROVIDERS: PCP Family Medicine Adult Medicine; Visit Provider Family Medicine Adult Medicine
DX: E11.9 Type 2 diabetes mellitus without complications (principal); I10 Essential (primary) hypertension; J44.9 Chronic obstructive pulmonary disease, unspecified; E03.9 Hypothyroidism, unspecified; R07.89 Other chest pain
CPT/HCPCS: 36415; 71101; 80053; 83036; 84443; 85025

== ENCOUNTER 2022-12-27 11:57 | Emergency (ER) | payer MEDICARE, MEDICAID, SELFPAY ==
[2022-12-27 12:29] VITALS: BP 127/78; PULSE 74; RESP 16; TEMP 36.7; O2SAT 95
--- NOTE | 2022-12-27 13:04 | XR_ITS ---
WS: [id number] EXAMINATION: XR forearm RT 2V [id number] REASON FOR EXAM: Fall injury COMPARISON: 03/24/2021 ORDER DATE: 12/27/2022 1:08 PM FINDINGS: There is no sign of any acute osseous or articular abnormality. Mild intercarpal and radiocarpal join t space narrowing. There is severe arthropathic change is seen in the carpal metacarpal joint of the right thumb and the metacarpal phalangeal joint of the thumb. No specific soft tissue abnormality. XR/XR forearm RT 2V [id number] IMPRESSION: No acute osseous change with arthropathy described in the wrist.
--- NOTE | 2022-12-27 13:07 | W.ED.EXTPRO ---
HPI - Extremity Problem General: Chief complaint: Extremity Injury, Upper Stated complaint: Laceration on Right Arm Time Seen by Provider: 12/27/22 12:39 History of Present Illness: Patient is a 77-year-old female comes to the ED with laceration on right arm. Injury occurred after fall just prior to arrival. Patient says she tripped over an object causing her to fall. She says her right forearm hit a piece of wood causing 2 lacerations to her right forearm. She denies any head trauma or loss of consciousness. Patient is not on any blood thinners. She was able to control bleeding with a bandage. Denies any headaches, vision changes, numbness tingling or weakness to 1 side of her face or body. Patient is not up-to-date on tetanus. Associated symptoms: Deny chest pain, fever(s) or rash Review of Systems Const: Denies: fever(s), chills or fatigue Eyes: Denies: change in vision or eye discomfort ENMT: Denies: throat pain, odynophagia, nasal discharge or nasal congestion Card: Denies: chest pain, palpitations, edema, swelling of feet/ankles, dyspnea on exertion or orthopnea Resp: Denies: dyspnea, productive cough or non-productive cough GI: Denies: abdominal pain, nausea, vomiting, diarrhea, constipation or hematochezia : Denies: flank pain, dysuria or hematuria Musc: Denies: neck pain, back pain or extremity swelling Skin/Breast: Reports: new lesions (To lacerations of the right forearm); Denies: rash Neuro: Denies: headache(s), numbness in extremities or weakness in extremities PFS ED PFSH: Medical History (Updated 12/27/22 @ 14:12 by JUSTEN Singh) COPD (chronic obstructive pulmonary disease) Depression Diabetes mellitus type 2 in nonobese Hemoglobin A1c 6.4 on 03/25/2022. Dysphagia GERD (gastroesophageal reflux disease) Hepatitis C Hypertension Hypothyroidism CHING on CPAP Osteoporosis Right-sided chest wall pain Thyroid nodule greater than or equal to 1.5 cm in diameter incidentally noted on imaging study Vitamin D deficiency Surgical History History of colonoscopy (10/20/20) diverticulosis History of esophagogastroduodenoscopy (EGD) (10/20/20) gastritis History of hysterectomy History of lumpectomy of right breast benign--2018 History of tubal ligation Family History Father Alcoholism Mother Cancer, Onset Age: 63 Lung Grandfather Congestive heart failure Paternal Grandmother Alcoholism Maternal Myocardial infarction Maternal Family/Other Parkinson disease Aunt Family/Other Hepatitis C Maternal Aunt Sister Drug abuse Brother Drug abuse Denies family history of Diabetes Clotting disorder Chronic kidney disease (CKD) Hypertension Stroke Social History Smoking and tobacco status: current every day smoker (1 ppd) cigarettes Packs smoked per day: 1 Years cigarettes smoked: 61 [ Other cigarette details: Started at age 14 ] Quit status (tobacco): has tried quititng Smoking risk assessment/counseling performed?: Yes Alcohol intake: former Substance/Drug Use: current Substance/Drug use frequency: few times a week Adopted: No Lives independently: Yes Household members: family Housing: House Marital status: Highest education level completed: High School Graduate service: No Current occupational status: retired Pets and animals: No Sexually active: No Do you think of yourself as: Straight/Heterosexual Current gender identity: Female Summer/Faith: Temple Special summer needs: No Agree to transfusion: No Financial difficulty paying for basics: Decline to Answer Physical Exam Const: COMMON NORMALS: patient oriented x3 and alert GENERAL APPEARANCE: cooperative HENMT: COMMON NORMALS: normocephalic HEAD & SCALP: normocephalic MOUTH: Normal oral and palatal mucosa present THROAT: posterior oropharynx normal and uvula midline Neck/C-Spine: COMMON NORMALS: supple GENERAL: Yes normal visual inspection Resp: COMMON NORMALS: normal respiratory effort, No retractions, No use of accessory muscles and clear to auscultation bilaterally AUSCULTATION: clear to auscultation bilaterally Cardio: COMMON NORMALS: regular rate, regular rhythm, S1 normal heart sound present, S2 normal heart sound present, No gallops present (Cardio), No clicks present (Cardio), No murmurs present (Cardio) and Peripheral pulses 2+ throughout RATE: regular rate RHYTHM: regular rhythm HEART SOUNDS: S1 normal heart sound present and S2 normal heart sound present PERIPHERAL PULSES: Peripheral pulses 2+ throughout GI: COMMON NORMALS: Normal to inspection, nondistended, normoactive bowel sounds present, Soft to palpation, non-tender and no masses PALPATION: Yes Soft to palpation : COMMON NORMALS: Yes no CVA tenderness BLADDER/KIDNEY EXAM: Yes no CVA tenderness Back/Pelvis: COMMON NORMALS: no CVA tenderness Extremity: COMMON NORMALS: normal to inspection, full ROM and capillary refill normal Neuro: COMMON NORMALS: patient oriented x3, CN's II-XII intact bilaterally, moves all extremities and no sensory deficits noted SENSORIUM/ORIENTATION: Yes alert SPEECH: speech normal GAIT: Yes Normal gait present MOTOR EXAM: 5/5 motor strength present throughout Skin: NARRATIVE SKIN EXAM: Right forearm?superficial 8 cm linear abrasion with no active bleeding. and a 3.5 cm U-shaped laceration on forearm as well. No active bleeding or contaminants seen. GENERAL SKIN EXAM: dry skin Procedures Laceration Laceration 1: Site: upper extremity (Forearm) Side (If applicable): right Size (cm): 3.5 Description: irregular (U shaped) Depth: simple, single layer Local Anesthetic: lidocaine 1% Amount of anesthesia used (mL): 5 Pre-repair: irrigated extensively (With normal saline) Skin layer closed with: nylon Size (cm): 4-0 Number of sutures: 5 Technique: simple, interrupted Course Vital Signs: Vital signs: Vital Signs Temperature 98.1 F 12/27/22 12:29 Pulse Rate 74 12/27/22 12:29 Respiratory Rate 16 12/27/22 12:29 Blood Pressure 127/78 12/27/22 12:29 Pulse Oximetry 95 12/27/22 12:29 Oxygen Delivery Me thod Room Air 12/27/22 12:29 MDM - Extremity (Nontraumatic) Medical Decision Making Patient is a 77-year-old female comes to the ED with laceration on right arm. Injury occurred after fall just prior to arrival. Patient says she tripped over an object causing her to fall. She says her right forearm hit a piece of wood causing 2 lacerations to her right forearm. She denies any head trauma or loss of consciousness. Patient is not on any blood thinners. She was able to control bleeding with a bandage. Denies any headaches, vision changes, numbness tingling or weakness to 1 side of her face or body. Patient is not up-to-date on tetanus. Right forearm?superficial 8 cm linear abrasion with no active bleeding. and a 3.5 cm U-shaped laceration on forearm as well. No active bleeding or contaminants seen. Patient has full range of motion in right wrist and hand with no pain. Vitals are stable. X-ray of forearm showed no acute fractures or findings. Laceration abrasions were irrigated extensively with normal saline. She was given an updated tetanus shot here in the ED. lidocaine 1% was used as local and 5 sutures were placed to close laceration site on forearm. Nurse then apply triple antibiotic ointment over abrasion laceration and wrapped with bandage. She was sent home with a prophylactic antibiotic prescription. Told to have sutures removed in 7 to 10 days. She was instructed on how to care for laceration and abrasions today. Patient understood and agreed with plan. Lab Data Radiology Impressions Forearm X-Ray 12/27/22 13:04 IMPRESSION: No acute osseous change with arthropathy described in the wrist. Discharge Plan Discharge Patient Disposition: Home Clinical Impression: Forearm laceration Qualifiers: Encounter type: initial encounter Laterality: right Qualified Code(s): S51.811A - Laceration without foreign body of right forearm, initial encounter Abrasion of forearm Qualifiers: Encounter type: initial encounter Laterality: right Qualified Code(s): S50.811A - Abrasion of right forearm, initial encounter Condition: Stable Prescriptions: New cephalexin 500 mg capsule 500 mg PO Q6H 4 Days Qty: 16 0RF No Action cholecalciferol (vitamin D3) 50 mcg (2,000 unit) capsule 50 mcg PO DAILY venlafaxine 75 mg tablet 75 mg PO DAILY ascorbic acid (vitamin C) 1,000 mg tablet 1 gm PO DAILY gabapentin 800 mg tablet 800 mg PO TID PRN guaifenesin [Mucus Relief ER] 600 mg tablet extended release 12hr 600 mg PO BID Qty: 60 1RF aspirin [Adult Aspirin Regimen] 81 mg tablet,delayed release (DR/EC) 81 mg PO DAILY Qty: 90 3RF Incruse Ellipta 62.5 mcg/actuation blister with device 1 inh INHALATION DAILY Qty: 30 5RF montelukast 10 mg tablet 10 mg PO DAILY Qty: 90 3RF a lipoic ousn-[id number]-[id number] 125 mg-95 mcg- 250 mg capsule PO coenzyme Q10 [Co Q-10] 200 mg capsule 200 mg PO DAILY vitamin B complex [B Complex-Vitamin B12] Tablet 1 tab PO DAILY atenolol 25 mg tablet 25 mg PO DAILY Qty: 7 0RF atorvastatin 40 mg tablet 40 mg PO DAILY amlodipine 5 mg tablet 5 mg PO DAILY (DME) Nebulizer & mask-tubing supplies See Rx Instructions .Route .MEDSUPPLY Qty: 1 0RF Rx Instructions: As directed 1 to 4 times a day azithromycin 500 mg tablet 500 mg PO .COMPLEX 90 Days Qty: 18 3RF Rx Instructions: 500 mg PO Monday; (DME) blood-glucose meter Misc See Rx Instructions .Route Qty: 1 0RF Rx Instructions: As directed (DME) Blood Glucose Test Strip See Rx Instructions .Route Qty: 50 10RF Rx Instructions: As directed (DME) lancets [Fingerstix Lancets] Misc See Rx Instructions .Route Qty: 100 5RF Rx Instructions: As directed levothyroxine 75 mcg capsule 75 mcg PO DAILY Qty: 30 3RF prednisone 5 mg tablet 5 mg PO DAILY Qty: 30 3RF losartan 100 mg tablet See Rx Instructions .ROUTE .COMPLEX Qty: 90 1RF Dose Instruction: TAKE 1 TABLET BY MOUTH EVERY DAY Rx Instructions: TAKE 1 TABLET BY MOUTH EVERY DAY Symbicort 160-4.5 mcg/actuation HFA aerosol inhaler 2 puff INHALATION BID Qty: 10.2 5RF albuterol sulfate [ProAir HFA] 90 mcg/actuation HFA aerosol inhaler 1 puff INHALATION Q4H PRN (Reason: Shortness Of Breath) Qty: 8.5 5RF doxycycline hyclate 100 mg capsule 100 mg PO BID Qty: 60 1RF metformin 500 mg tablet See Rx Instructions .ROUTE .COMPLEX Qty: 90 1RF Dose Instruction: TAKE 1 TABLET BY MOUTH DAILY FOR DIABETES Rx Instructions: TAKE 1 TABLET BY MOUTH DAILY FOR DIABETES ipratropium-albuterol 0.5 mg-3 mg(2.5 mg base)/3 mL solution for nebulization 3 ml INHALATION Q4H PRN (Reason: Shortness Of Breath) Qty: 180 1RF cyanocobalamin (vitamin B-12) [Vitamin B-12] 250 mcg Tablet 250 mcg PO DAILY loratadine 10 mg Tablet 10 mg PO DAILY Discharge Orders: Discharge ED (Routine); Ordered 12/27/22 Ordered By: Richard Chen Referrals: Alexander Kingston MD [Primary Care Provider] - Discharge Diet: Regular Discharge Activity: Increase activity as tolerated Patient Instructions: Laceration (DC), Abrasion (ED) Activity Restrictions/Additional Instructions: Take full course of antibiotics as prescribed. Keep laceration site clean and dry. . Clean daily with soap and water and then apply thin layer of triple antibiotic ointment on it and cover with bandage. Avoid submerging lacerations in any body of water such as [place] or lakes until its fully healed. Watch for signs of infection such as redness, warmth, increased tenderness and puslike drainage. If you see the signs of infection return to the ED, urgent care or PCP for reevaluation. call your PCP to schedule a follow-up appointment for reevaluation and suture removal in about 7-10 days. Continue taking all home meds. Follow discharge plans as discussed. You can return to the ED if symptoms worsen. Coding Level of Care Code ED Lifestyle Block Farmer for Gabby Goldstein
[2022-12-27] MEDS: tetanus-dipt-pertussis 0.5 mL SDV IM (13:29)
[2022-12-27] MEDS: lidocaine 1% INJ 10 mL (per mL) 20 ML INJECTION (13:30)
== END 2022-12-27 14:45 | disposition home or self-care (01) ==
PROVIDERS: Emergency Provider Physician Assistant; PCP Family Medicine Adult Medicine
DX: S51.811A Laceration without foreign body of right forearm, initial encounter (principal); S50.811A Abrasion of right forearm, initial encounter; Z79.82 Long term (current) use of aspirin; Z79.84 Long term (current) use of oral hypoglycemic drugs; F17.210 Nicotine dependence, cigarettes, uncomplicated; J44.9 Chronic obstructive pulmonary disease, unspecified; E11.9 Type 2 diabetes mellitus without complications; Z86.19 Personal history of other infectious and parasitic diseases; I10 Essential (primary) hypertension; W18.09XA Striking against other object with subsequent fall, initial encounter; Z23 Encounter for immunization
CPT/HCPCS: 12002; 73090; 90471; 90715; 99283

== ENCOUNTER → 2023-03-14 15:48 | Outpatient (BNVA) | payer MEDICARE, MEDICAID, SELFPAY | PROVIDERS: PCP Family Medicine Adult Medicine; Visit Provider Family Medicine Adult Medicine | DX: I10 Essential (primary) hypertension (principal); E03.9 Hypothyroidism, unspecified | CPT/HCPCS: 84443 ==

== ENCOUNTER 2023-03-15 10:56 | Outpatient (CLI) | payer MEDICARE, MEDICAID, SELFPAY ==
--- NOTE | 2023-03-15 11:00 | CT_ITS ---
WS: [id number] LDCT LUNG CANCER SCREENING HISTORY: Cancer screen TECHNIQUE: Axial imaging performed from the apices to 1 cm below the costophrenic angles. Coronal and sagittal reformats are submitted with axial MIP series. All CT scans at [facility] use at least one of these dose optimization techniques: automated exposure control; mA and/or kV adjustment per patient size (includes targeted exams where dose is matched to clinical indication); or iterativ e reconstruction. DLP: 66.19 mGy.cm DIvol: Mean CTDIvol: 1.10 (mGy) COMPARISON: 03/15/2022 Diagnostic quality: Satisfactory Lungs: Moderate pulmonary hyperinflation. No mass or pulmonary nodule. Thin linear areas of scarring or atelectasis at the lung bases. Small amount of mucus in the proximal RIGHT mainstem bronchus. Heart: Normal size heart with no pericardial effusion.. Moderate coronary artery calcification. Other findings: No change in the 18 mm LEFT thyroid nodule. Previously described on the prior study o f 03/15/2022. Prior ultrasound from 05/03/2022. Mild atherosclerosis aorta. No mediastinal or hilar alicia nopathy. Small hiatal hernia. LEFT hepatic cystic 2.2 cm. No adrenal mass. Advanced splenic artery ca lcifications. Increase in thoracic kyphosis. Advanced degenerative changes throughout the thoracic sp ine. Disc bases are narrowed. Sclerotic endplate changes at several levels. IMPRESSION: CT/CT lung screening [id number] LUNG-RADS: 1-Negative FOLLOW UP: 12 Month: Continue annual screening with LDCT OTHER FINDINGS (S MODIFIER): None.
== END 2023-03-15 10:57 | disposition home or self-care (01) ==
PROVIDERS: PCP Family Medicine Adult Medicine; Visit Provider Internal Medicine Pulmonary Disease
DX: Z12.2 Encounter for screening for malignant neoplasm of respiratory organs (principal); F17.210 Nicotine dependence, cigarettes, uncomplicated
CPT/HCPCS: 71271

== ENCOUNTER 2023-04-25 13:25 | Outpatient (CLI) | payer MEDICARE, MEDICAID, SELFPAY ==
--- NOTE | 2023-04-25 13:37 | MM_ITS ---
WS: [id number] BILATERAL 3D TOMOSYNTHESIS DIGITAL SCREENING MAMMOGRAPHY WITH CAD CLINICAL INFORMATION: SCREENING HISTORY: Screening mammogram. No current complaints. COMPARISON: 2021 TECHNIQUE: Bilateral CC and MLO views. FINDINGS: Scattered fibroglandular densities bilaterally. No suspicious focal mass, asymmetry, calcifications, or architectural distortion. No evidence of malignancy. A few incidental punctate calcifications. IMPRESSION: MM/[place] [id number] BI-RADS: 2-Benign FOLLOW UP: 1 Year Follow-up Recommend return to annual screening mammography.
== END 2023-04-25 13:26 | disposition home or self-care (01) ==
PROVIDERS: PCP Family Medicine Adult Medicine; Visit Provider Family Medicine Adult Medicine
DX: Z12.31 Encounter for screening mammogram for malignant neoplasm of breast (principal)
CPT/HCPCS: 77063; 77067

== ENCOUNTER → 2023-04-28 09:53 | Outpatient (BNVA) | payer MEDICARE, MEDICAID, SELFPAY | PROVIDERS: PCP Family Medicine Adult Medicine; Referring Provider Family Medicine Adult Medicine; Visit Provider Internal Medicine Pulmonary Disease | DX: J44.9 Chronic obstructive pulmonary disease, unspecified (principal); G47.33 Obstructive sleep apnea (adult) (pediatric); F17.210 Nicotine dependence, cigarettes, uncomplicated; J45.909 Unspecified asthma, uncomplicated; J30.2 Other seasonal allergic rhinitis | CPT/HCPCS: 36415; 82785; 86003; 99214 ==